=== PATIENT | male | born 1985 | race African-American/Black ===

== ENCOUNTER 2016-07-06 09:19 | Emergency (ER) ==
[2016-07-06 09:25] VITALS: BP 166/91; TEMP 98.7; BMI 36.9
[2016-07-06 10:09] LABS: BASOPHILS # (AUTO) 0.1 K/uL (0-0.2); BASOPHILS % (AUTO) 0.6 % (0.0-3.0); EOSINOPHILS # (AUTO) 0.4 K/ul (0.0-0.7); EOSINOPHILS % (AUTO) 4.7 % (0.0-7.0); HEMATOCRIT 42.9 % (42.0-52.0); HEMOGLOBIN 14.2 g/dl (14.0-18.0); IMMATURE GRANULOCYTE % (AUTO) 0.3 % (0.0-5.0); LYMPHOCYTES # (AUTO) 1.8 K/uL (0.60-3.4); LYMPHOCYTES % (AUTO) 20.8 (10.0-50.0); MEAN CORPUSCULAR HEMOGLOBIN 30.5 pg (27.0-31.0); MEAN CORPUSCULAR HGB CONC 33.1 (31.8-35.4); MEAN CORPUSCULAR VOLUME 92.3 fl (80.0-94.0); MONOCYTES # (AUTO) 0.7 K/uL (0.4-2.0); NEUTROPHILS # (AUTO) 5.8 K/ul (2.0-6.9); NEUTROPHILS % (AUTO) 65.6; PLATELET COUNT 311 10^3/uL (140-440); RED BLOOD COUNT 4.65 10^6/ul (4.70-6.10); WHITE BLOOD COUNT 8.79 K/ul (4.2-10.2)
[2016-07-06 10:30] LABS: ALBUMIN 3.7 g/dL (3.4-5.0); ALBUMIN/GLOBULIN RATIO 1.19; BILIRUBIN,TOTAL 0.71 mg/dL (0.00-1.20); BUN/CREATININE RATIO 18.26; CALCIUM 8.9 mg/dL (8.2-10.2); CREATININE 1.15 mg/dL (0.60-1.10); TOTAL PROTEIN 6.8 g/dL (6.4-8.2)
[2016-07-06] MEDS ORDERED: ROCEPHIN IM STA (10:50)
[2016-07-06] MEDS ORDERED: DUONEB NEB STA (10:50)
[2016-07-06] MEDS ORDERED: LIDOCAINE 1 % AMP 5 ML (SUTURES) IM STA (10:50)
[2016-07-06] MEDS ORDERED: DECADRON 4 MG/ML SDV IM STA (10:50)
--- NOTE | 2016-07-06 10:53 | DI ---
EXAM: Chest two view, frontal and lateral views. HISTORY: Cough. COMPARISON: 07/05/2012. FINDINGS: The heart size is normal. There is no pulmonary vascular congestion. The lungs are jess r. No pleural effusion or pneumothorax is seen. No acute osseous abnormality identified. Since prior study, there has been no significant interval change. IMPRESSION: No acute cardiopulmonary process.
[2016-07-06 10:56] LABS: FLU INTERNAL QC INTERNAL QC VALID; RAPID FLU A NEGATIVE (NEGATIVE); RAPID FLU B NEGATIVE (NEGATIVE)
--- NOTE | 2016-07-06 10:56 | ED.PDOC ---
General ED Provider: Dr. MARY AVILA Chief Complaint: Cough Stated Complaint: cough, flu like symptoms Time Seen by Physician: 09:40 Mode of Arrival: Walk-In Information Source: Patient Exam Limitations: No limitations Primary Care Provider: BOO LEES Nursing and Triage Documentation Reviewed and Agree: Yes Respiratory Complaint Exam - Respiratory Complaint/Exam Symptoms Are: Still present Timing: Intermittent Initial Severity: Moderate Current Severity: Moderate Location: Throat Character: Reports: Non-productive cough Aggravating: Reports: None Alleviating: Reports: None Associated Signs and Symptoms: Reports: Chills, Wheezing, URI Related History: Reports: Similar episode History of Healthcare-Acquired Pneumonia: No Related Surgical History: Reports: None Pulmonary Embolism Risk Factors: Smoking Cardiac Risk Factors: Reports: Smoking Pseudomonas Risk Factors: Reports: None Tuberculosis Risk Factors: Reports: None Status Asthmaticus Risk Factors: Reports: None Home Oxygen Use: No Recent Stress Test: No Recent Echo/LV Function: No Current Antibiotic Use: No Current Asthma Medication Use: No Respiratory Distress: None Inadequate Respiratory Effort: No Dysphagia Present: No Stridor Present: No JVD Present: No Accessory Muscle Use: No Retractions: Not Present Diminished Breath Sounds: No Sinus Tenderness: None Grunting Respirations: No Kussmaul Respirations: No Differential Diagnoses: Pneumonia, Bronchitis Review of Systems - Review Of Systems Constitutional: Reports: Chills, Malaise Eyes: Reports: No symptoms Ears, Nose, Mouth, Throat: Reports: No symptoms Respiratory: Reports: Cough Cardiac: Reports: No symptoms GI: Reports: No symptoms : Reports: No symptoms Musculoskeletal: Reports: No symptoms Skin: Reports: No symptoms Neurological: Reports: No symptoms Endocrine: Reports: No symptoms Hematologic/Lymphatic: Reports: No symptoms All Other Systems: Reviewed and Negative Past Medical History - Past Medical History Previously Healthy: Yes Endocrine: Reports: None Cardiovascular: Reports: None Respiratory: Reports: None Hematological: Reports: None Gastrointestinal: Reports: None Genitourinary: Reports: None Neuro/Psych: Reports: None Musculoskeletal: Reports: None Cancer: Reports: None - Surgical History General Surgical History: Reports: None - Family History Family History: Reports: None - Social History Smoking Status: Current some day smoker Hx Substance Use: No Alcohol Screening: Occasionally - Immunizations Tetanus Shot up to Date: Yes Physical Exam - Physical Exam Appearance: Well-appearing, No pain distress, Well-nourished Eyes: DOUG, EOMI, Conjunctiva clear ENT: Ears normal, Nose normal, Oropharynx normal Respiratory: Airway patent, Breath sounds clear, Breath sounds equal, Respirations nonlabored Cardiovascular: RRR, Pulses normal, No rub, No murmur GI/: Soft, Nontender, No masses, Bowel sounds normal, No Organomegaly Musculoskeletal: Normal strength, ROM intact, No edema, No calf tenderness Skin: Warm, Dry, Normal color Neurological: Sensation intact, Motor intact, Reflexes intact, Cranial nerves intact, Alert, Oriented Psychiatric: Affect appropriate, Mood appropriate Critical Care Note - Critical Care Note Total Time (mins): 0 Course - Course Hematology/Chemistry: 07/06/16 10:00 07/06/16 10:00 Orders, Labs, Meds: Lab Review 07/06/16 10:00 WBC 8.79 RBC 4.65 L Hgb 14.2 Hct 42.9 MCV 92.3 MCH 30.5 MCHC 33.1 RDW Coeff of Keo 13.6 Plt Count 311 Immature Gran % (Auto) 0.3 Neut % (Auto) 65.6 Lymph % (Auto) 20.8 Rankin % (Auto) 8.0 Eos % (Auto) 4.7 Baso % (Auto) 0.6 Immature Gran # (Auto) 0.0 Neut # 5.8 Lymph # 1.8 Rankin # 0.7 Eos # 0.4 Baso # 0.1 Sodium 139 Potassium 4.0 Chloride 106 Carbon Dioxide 25 Anion Gap 12.0 BUN 21 H Creatinine 1.15 H Estimated GFR (MDRD) 90.00 BUN/Creatinine Ratio 18.26 Glucose 95 Calcium 8.9 Total Bilirubin 0.71 AST 31 ALT 32 Alkaline Phosphatase 54 Total Protein 6.8 Albumin 3.7 Globulin 3.1 Albumin/Globulin Ratio 1.19 Orders Category Date Time Status NEBULIZER TREATMENT Stat CARDIO 07/06/16 10:50 Ordered CBC W/ AUTO DIFF Stat LAB 07/06/16 10:00 Completed COMPREHENSIVE METABOLIC PANEL Stat LAB 07/06/16 10:00 Completed RAPID FLU A/B Stat LAB 07/06/16 10:05 Received STREP SCREEN Stat LAB 07/06/16 10:05 Received Ceftriaxone Sodium [Rocephin] MEDS 07/06/16 10:50 Stat 1 gm IM ONCE STA Dexamethasone 4 mg/ml Inj [Decadron 4 mg/ml Sdv] MEDS 07/06/16 10:50 Stat 4 mg IM ONCE STA Ipratropium/Albuterol Neb [Duoneb] MEDS 07/06/16 10:50 Stat 1 vial NEB ONCE STA Lidocaine HCl/Pf [Lidocaine 1 % Amp 5 ml (Sutures)] MEDS 07/06/16 10:50 Stat 2.1 ml IM ONCE STA CHEST, 2 VIEWS PA & LAT Stat RADS 07/06/16 09:51 Taken Medications Discontinued Medications Generic Name Dose Route Start Last Admin Trade Name Dominic PRN Reason Stop Dose Admin Albuterol/Ipratropium 1 vial 07/06/16 10:50 Duoneb NEB 07/06/16 10:51 ONCE STA Ceftriaxone Sodium 1 gm 07/06/16 10:50 Rocephin IM 07/06/16 10:51 ONCE STA Dexamethasone Sodium Phosphate 4 mg 07/06/16 10:50 Decadron 4 Mg/Ml Sdv IM 07/06/16 10:51 ONCE STA Lidocaine HCl 2.1 ml 07/06/16 10:50 Lidocaine 1 % Amp 5 Ml (Sutures) IM 07/06/16 10:51 ONCE STA Vital Signs: Temp Pulse Resp BP Pulse Ox 07/06/16 09:20 98.7 F 88 16 166/91 H 96 Departure - Departure Time of Disposition: 11:37 Disposition: HOME SELF-CARE Discharge Problem: Cough, Bronchitis Instructions: Acute Bronchitis (ED), Wheezing (ED), How Your Lungs Work (ED), Bronchospasm (ED) Condition: Good Pt referred to PMD for follow-up: No Additional Instructions: Please call your Family Physician as soon as possible to schedule a follow-up appointment. Allergies/Adverse Reactions: Allergies No Known Allergies Allergy (Unverified 07/06/16 09:30) Home Medications: Ambulatory Orders 1 [No Reported Medications] 07/06/16 Disposition Discussed With: Patient
== END 2016-07-06 11:30 | disposition home or self-care (01) ==
LOC: ED 09:19
DX: J20.9 Acute bronchitis, unspecified (principal); F17.210 Nicotine dependence, cigarettes, uncomplicated
CPT/HCPCS: 36415; 80053; 85025; 87651; 87804; 87880; 94640; 96372; 99283